=== PATIENT | male | born 1960 | race African-American/Black ===

== ENCOUNTER 2022-08-19 22:36 | Emergency (ER) | payer OTHER ==
[~2022-08-19] VITALS: Ht 172.7 cm; Wt 62.7 kg
[2022-08-20] MEDS ORDERED: PREDNISONE 20MG TABLET PO ONE (05:00)
[2022-08-20] MEDS ORDERED: P50 MT (05:08)
[2022-08-20] MEDS ORDERED: TACR30OI5 TP (05:08)
[2022-08-20] MEDS ORDERED: BETA15CR5 TP (05:08)
[2022-08-20] MEDS ORDERED: HYDR453.3 TP (05:08)
[2022-08-20] MEDS ORDERED: FLUO20DR3 EACH EAR (05:08)
[2022-08-20 05:25] VITALS: BP 124/78
== END 2022-08-20 05:27 | disposition home or self-care (01) ==
LOC: ER 22:43
DX: L30.9 Dermatitis, unspecified (principal); I10 Essential (primary) hypertension; Z79.899 Other long term (current) drug therapy
CPT/HCPCS: 99283; J7512

== ENCOUNTER 2022-12-14 14:53 | Emergency (ER) | payer OTHER ==
[~2022-12-14] VITALS: Ht 167.6 cm; Wt 81.0 kg
[~2022-12-14 14:53] MED LIST: BETA15CR5 TP; FLUO20DR3 EACH EAR; HYDR453.3 TP; P50 MT; TACR30OI5 TP
[2022-12-14 15:01] VITALS: BP 113/77
[2022-12-14] MEDS ORDERED: IBUPROFEN 600MG TABLET PO STA (16:58)
[2022-12-14] MEDS ORDERED: DICL100G31 TP (17:50)
[2022-12-14] MEDS ORDERED: NAPR-681 PO (17:50)
== END 2022-12-14 18:30 | disposition home or self-care (01) ==
LOC: ER 15:04
DX: S60.211A Contusion of right wrist, initial encounter (principal); M79.641 Pain in right hand; M19.031 Primary osteoarthritis, right wrist; I10 Essential (primary) hypertension; W01.0XXA Fall on same level from slipping, tripping and stumbling without subsequent striking against object, initial encounter; Y93.89 Activity, other specified; Y92.89 Other specified places as the place of occurrence of the external cause
CPT/HCPCS: 73110; 73130; 99284

== ENCOUNTER 2024-01-22 18:37 | Inpatient (IN) | payer MEDICARE, MEDICAID ==
[~2024-01-22] VITALS: Ht 172.7 cm; Wt 67.1 kg
[~2024-01-22 18:37] MED LIST changes: +DICL100G58 TP; +NAPR-681 PO
[2024-01-22 19:31] LABS: HEMATOCRIT. 37.5 % (42.0-52.0); HEMOGLOBIN. 12.2 g/dL (14.0-18.0); MEAN CORPUSCULAR HEMOGLOBIN 31.4 pg (28.0-32.0); MEAN CORPUSCULAR HGB CONC 32.6 g/dL (31.0-37.0); MEAN CORPUSCULAR VOLUME 96.4 fL (80.0-94.0); MEAN PLATELET VOLUME 7.4 fl (7.4-10.4); PLATELET 314 x1000/uL (130-400); RED BLOOD CELL COUNT 3.89 mill/uL (4.7-6.1); RED CELL DISTRIBUTION WIDTH 15.9 % (11.6-14.6); WHITE BLOOD COUNT 11.8 x1000/uL (4.5-11.0)
[2024-01-22 19:34] LABS: DIFFERENTIAL COMMENT 1
[2024-01-22 19:38] LABS: PROTHROMBIN TIME 10.8 sec (9.6-11.0)
[2024-01-22 19:47] LABS: ALANINE AMINOTRANSFERASE 11 IU/L (10-49); ALBUMIN 3.8 g/dL (3.2-4.8); ASPARTATE AMINOTRANSFERASE 24 IU/L (<34); BILIRUBIN TOTAL 0.7 mg/dL (0.1-1.0); CALCIUM 8.8 mg/dL (8.7-10.4); CARBON DIOXIDE 24 mEq/L (21-32); CHLORIDE 105 mEq/L (98-107); GLUCOSE 101 mg/dL (70-105); POTASSIUM 3.9 mEq/L (3.5-5.1); PROTEIN TOTAL 7.7 g/dL (6.0-8.3); SODIUM 137 mEq/L (136-145); TROPONIN I HIGH SENSITIVITY 4 ng/L (3.0-53); UREA NITROGEN BLOOD 15 mg/dL (9-23)
[2024-01-22] MEDS: SODIUM CHLORIDE 0.9% 1000ML BAG (SEPSIS BOLUS) IV ONE (19:58)
[2024-01-22] MEDS: DEXAMETHASONE 10 MG/ML VIAL IV ONE (19:58)
[2024-01-22] MEDS: VANCOMYCIN 1G PREMIX 200 ML IV ONE (19:58)
[2024-01-22 20:02] LABS: PLATELET ESTIMATE NORMAL
[2024-01-22 21:54] LABS: TROPONIN I HIGH SENSITIVITY 4 ng/L (3.0-53)
[2024-01-22 22:22] LABS: CLARITY URINE CLEAR (CLEAR); COLOR URINE DARK YELLOW (YELLOW); GLUCOSE URINE NEGATIVE (NEGATIVE); KETONES URINE TRACE (NEGATIVE); LEUKOCYTE ESTERASE URINE NEGATIVE (NEGATIVE); NITRITE URINE NEGATIVE (NEGATIVE); OCCULT BLOOD URINE NEGATIVE (NEGATIVE); PH URINE 5.5 (4.5-8.0); PROTEIN URINE TRACE (NEGATIVE); SPECIFIC GRAVITY URINE 1.048 (1.005-1.030)
[2024-01-22] MEDS: MEROPENEM 1G/100ML 100 ML IV SCH (22:28)
[2024-01-22] MEDS: IOHEXOL-300 100 ML BOTTLE ONE (22:32)
[2024-01-22 22:49] LABS: BACTERIA URINE 1+
[2024-01-22 22:50] LABS: RBC URINE 0-2 /hpf (0-2); SQUAMOUS EPITHELIAL CELL URINE 1+ /lpf (RARE/1+); WBC URINE 0-2 /hpf (0-2)
[2024-01-23 06:18] VITALS: BP 159/96; PULSE 104; RESP 18; TEMP 98.8
[2024-01-23] MEDS ORDERED: LEVO25TA7 MT (06:59)
[2024-01-23] MEDS ORDERED: CIPR2.5D20 EACHEYE (06:59)
[2024-01-23] MEDS ORDERED: ERYT1OIN6 EACHEYE (06:59)
[2024-01-23] MEDS ORDERED: HYDR25TA MT (06:59)
[2024-01-23] MEDS ORDERED: AMLO5TAB88 MT (06:59)
[2024-01-23] MEDS ORDERED: DIPH25TA23 PO (07:01)
[2024-01-23] MEDS ORDERED: DIPH-907 MT (07:01)
[2024-01-23] MEDS ORDERED: IBUP-2030 MT (07:05)
[2024-01-23 08:00] VITALS: BP 153/90; PULSE 95; RESP 20; TEMP 98
[2024-01-23] MEDS ORDERED: ONDANSETRON HCL 4MG/2ML INJ IV PRN (11:00)
[2024-01-23] MEDS ORDERED: ACETAMINOPHEN 325MG TABLET PO PRN ×2 (11:00)
[2024-01-23] MEDS ORDERED: IPRATROPIUM/ALBUTEROL 0.5-3(2.5)MG/3ML NEB HHN PRN (11:00)
[2024-01-23] MEDS ORDERED: LACTULOSE 20G/30ML UDC PO NR (11:19)
[2024-01-23 12:00] VITALS: BP 149/98; PULSE 113; RESP 20; TEMP 98.4
[2024-01-23 13:11] LABS: BG BASE EXCESS -0.7 mmol/L (-2.0-2.0); BG CARBOXYHEMOGLOBIN 0.3 % (0.5-1.5); BG DEOXYHEMOGLOBIN 4.5 % (0.0-5.0); BG FRACTION INSPIRED OXYGEN 21; BG HCO3 ACT 23.1 mmol/L (22.0-26.0); BG METHEMOGLOBIN 0.1 % (0.0-1.5); BG OXYGEN SATURATION 95.5 % (92.0-98.5); BG OXYHEMOGLOBIN 95.1 % (94.0-97.0); BG PCO2 34.9 mmHg (35.0-45.0); BG PH 7.438 (7.350-7.450); BG PO2 79.1 mmHg (75.0-100.0); BG SAMPLE SITE RIGHT BRACHIAL; BG TOTAL HEMOGLOBIN 11.5 g/dL (12.0-18.0); BG VENT MODE ROOM AIR
[2024-01-23] MEDS: DOCUSATE SODIUM 100MG CAPSULE PO PRN (14:57)
[2024-01-23] MEDS: DILTIAZEM HCL 30MG TABLET PO SCH (14:57)
[2024-01-23 15:30] LABS: BASOPHILS % 0.2 % (0.0-2.0); EOSINOPHILS % 1.8 % (0.0-5.0); HEMATOCRIT. 32.9 % (42.0-52.0); HEMOGLOBIN. 10.9 g/dL (14.0-18.0); LYMPHOCYTES % 14.7 % (20.0-50.0); MEAN CORPUSCULAR HEMOGLOBIN 31.5 pg (28.0-32.0); MEAN CORPUSCULAR HGB CONC 33.2 g/dL (31.0-37.0); MEAN PLATELET VOLUME 7.5 fl (7.4-10.4); MONOCYTES % 7.8 % (2.0-8.0); NEUTROPHILS % 75.5 % (40.0-76.0); PLATELET 281 x1000/uL (130-400); RED BLOOD CELL COUNT 3.46 mill/uL (4.7-6.1); RED CELL DISTRIBUTION WIDTH 15.3 % (11.6-14.6)
[2024-01-23 15:59] LABS: ALANINE AMINOTRANSFERASE 10 IU/L (10-49); ALBUMIN 3.5 g/dL (3.2-4.8); ASPARTATE AMINOTRANSFERASE 24 IU/L (<34); BILIRUBIN TOTAL 0.2 mg/dL (0.1-1.0); CALCIUM 8.6 mg/dL (8.7-10.4); CARBON DIOXIDE 25 mEq/L (21-32); CHLORIDE 108 mEq/L (98-107); CREATININE 0.8 mg/dL (0.6-1.3); GLUCOSE 125 mg/dL (70-105); POTASSIUM 3.8 mEq/L (3.5-5.1); SODIUM 140 mEq/L (136-145); T4 FREE 0.49 ng/dL (0.89-1.76); THYROID STIMULATING HORMONE 1.35 uIU/mL (0.55-4.78); UREA NITROGEN BLOOD 15 mg/dL (9-23)
[2024-01-23 16:00] VITALS: BP 141/87; PULSE 105; RESP 18; TEMP 98.1
[2024-01-23] MEDS: LEVOFLOXACIN 750MG PREMIX 150 ML IV SCH (18:00)
[2024-01-23 20:00] VITALS: BP 151/75; PULSE 85; RESP 20; TEMP 98
[2024-01-23] MEDS: HYDROCORTISONE 1% CREAM 30GM TOP SCH (21:25)
[2024-01-23] MEDS: METRONIDAZOLE 500 MG PREMIX 100 ML IV SCH (21:26)
[2024-01-24] VITALS: BP 131/56; PULSE 96; RESP 18; TEMP 98.2
[2024-01-24 04:00] VITALS: BP 140/78; PULSE 76; RESP 20; TEMP 98
[2024-01-24 06:37] LABS: HEMATOCRIT. 28.9 % (42.0-52.0); HEMOGLOBIN. 9.8 g/dL (14.0-18.0); MEAN CORPUSCULAR HEMOGLOBIN 31.9 pg (28.0-32.0); MEAN CORPUSCULAR HGB CONC 33.8 g/dL (31.0-37.0); MEAN CORPUSCULAR VOLUME 94.3 fL (80.0-94.0); MEAN PLATELET VOLUME 7.3 fl (7.4-10.4); PLATELET 243 x1000/uL (130-400); RED BLOOD CELL COUNT 3.07 mill/uL (4.7-6.1); RED CELL DISTRIBUTION WIDTH 15.1 % (11.6-14.6); WHITE BLOOD COUNT 7.8 x1000/uL (4.5-11.0)
[2024-01-24 06:45] LABS: DIFFERENTIAL COMMENT 1
[2024-01-24 06:58] LABS: CALCIUM 7.8 mg/dL (8.7-10.4); CARBON DIOXIDE 26 mEq/L (21-32); CHLORIDE 109 mEq/L (98-107); CREATININE 0.7 mg/dL (0.6-1.3); GLUCOSE 90 mg/dL (70-105); POTASSIUM 3.5 mEq/L (3.5-5.1); SODIUM 139 mEq/L (136-145); UREA NITROGEN BLOOD 13 mg/dL (9-23)
[2024-01-24 07:52] VITALS: BP 124/68; PULSE 78; RESP 18; TEMP 98.6
[2024-01-24] MEDS: INFLUENZA VACCINE 05/PF 0.5 ML SYRINGE IM ONE (08:39)
[2024-01-24] MEDS: PANTOPRAZOLE SODIUM 40 MG/VIAL IV SCH (10:18)
[2024-01-24 11:44] VITALS: BP 125/73; PULSE 77; RESP 19; TEMP 98.2
[2024-01-24] MEDS: DILTIAZEM HCL 60MG TABLET PO SCH (13:57)
[2024-01-24 15:21] LABS: ANISOCYTOSIS 1+; PLATELET ESTIMATE NORMAL
[2024-01-24 16:34] VITALS: BP 131/68; PULSE 78; RESP 20; TEMP 98.3
[2024-01-24] MEDS: SODIUM CHLORIDE 0.45% 1,000 ML IV SCH (18:45)
[2024-01-24] MEDS: PANTOT AC/MIN OIL/PET HY-PHL OINT (AQUAPHOR) TOP SCH (19:58)
[2024-01-24] MEDS: CLONIDINE 0.1MG TABLET PO PRN (19:58)
[2024-01-24 20:00] VITALS: BP 162/96; PULSE 66; RESP 20; TEMP 97.3
[2024-01-25] VITALS: BP 134/83; PULSE 93; RESP 18; TEMP 97.2
[2024-01-25 04:00] VITALS: BP 137/82; PULSE 76; RESP 18; TEMP 97.7
[2024-01-25 08:00] VITALS: BP 112/74; PULSE 86; RESP 20; TEMP 98.1
[2024-01-25 12:00] VITALS: BP 113/80; PULSE 88; RESP 20; TEMP 97.9
[2024-01-25 16:00] VITALS: BP 135/82; PULSE 73; RESP 18; TEMP 98.1
[2024-01-25] MEDS: LEVOFLOXACIN 250MG TABLET PO SCH (17:29)
[2024-01-25] MEDS: IOHEXOL-350 100 ML BOTTLE ONE (19:19)
[2024-01-25 20:00] VITALS: BP 147/91; PULSE 75; RESP 20; TEMP 97.7
[2024-01-25] MEDS: METRONIDAZOLE 500MG TABLET PO SCH (21:19)
[2024-01-26] VITALS: BP 142/86; PULSE 66; RESP 20; TEMP 97.5
[2024-01-26 04:00] VITALS: BP 158/95; PULSE 67; RESP 20; TEMP 97.5
[2024-01-26 08:00] VITALS: BP 136/91; PULSE 71; RESP 20; TEMP 97.4
[2024-01-26 12:00] VITALS: BP 148/84; PULSE 65; RESP 19; TEMP 97.6
[2024-01-26] MEDS ORDERED: LEVO-65 MT (12:11)
[2024-01-26] MEDS ORDERED: METR-167 MT (12:11)
[2024-01-26 12:39] VITALS: BP 148/84; PULSE 65; TEMP 97.6; O2SAT 97
[2024-01-26 13:12] VITALS: PULSE 65
== END 2024-01-26 14:40 | disposition home or self-care (01) | DRG 728 ==
LOC: ER 18:37 → EDBEDREQ 22:36 → EDBEDREQTM 22:39 → EDBEDREQSVC 22:39 → MICUSO 22:39 → 7WST 01-23 05:53
PROVIDERS: ADMIT Internal Medicine; ATTEND Internal Medicine
DX: N49.2 Inflammatory disorders of scrotum (principal); K56.41 Fecal impaction; D64.9 Anemia, unspecified; L30.9 Dermatitis, unspecified; I10 Essential (primary) hypertension; K44.9 Diaphragmatic hernia without obstruction or gangrene; I45.10 Unspecified right bundle-branch block; J44.9 Chronic obstructive pulmonary disease, unspecified; R00.0 Tachycardia, unspecified; M16.11 Unilateral primary osteoarthritis, right hip; Z88.0 Allergy status to penicillin
CPT/HCPCS: 36415; 36600; 71045; 74177; 76857; 76870; 78582; 80048; 80053; 81003; 82270; 82375; 82805; 83605; 83880; 84145; 84439; 84443; 84480; 84484; 85025; 85379; 87070; 90686; 93005; 93970; 93976; 99285; A9500; C9113; J1100; J1956; J2185; J3370; J3490; J7030; Q9967

== ENCOUNTER 2024-02-21 19:56 | Emergency (ER) | payer MEDICARE, MEDICAID ==
[~2024-02-21] VITALS: Ht 172.7 cm; Wt 73.0 kg
[~2024-02-21 19:56] MED LIST changes: +AMLO5TAB88 MT; +CIPR2.5D20 EACHEYE; +DIPH-907 MT; +DIPH25TA23 PO; +ERYT1OIN6 EACHEYE; +HYDR25TA MT; +IBUP-2030 MT; +LEVO-65 MT; +LEVO25TA7 MT; +METR-167 MT
[2024-02-21 20:01] VITALS: O2SAT 96
[2024-02-21 21:03] LABS: HEMATOCRIT. 36.1 % (42.0-52.0); HEMOGLOBIN. 11.7 g/dL (14.0-18.0); MEAN CORPUSCULAR HEMOGLOBIN 30.3 pg (28.0-32.0); MEAN CORPUSCULAR HGB CONC 32.4 g/dL (31.0-37.0); MEAN CORPUSCULAR VOLUME 93.5 fL (80.0-94.0); MEAN PLATELET VOLUME 6.8 fl (7.4-10.4); PLATELET 267 x1000/uL (130-400); RED BLOOD CELL COUNT 3.86 mill/uL (4.7-6.1); RED CELL DISTRIBUTION WIDTH 15.3 % (11.6-14.6); WHITE BLOOD COUNT 8.1 x1000/uL (4.5-11.0)
[2024-02-21 21:07] LABS: DIFFERENTIAL COMMENT 1
[2024-02-21 21:24] LABS: ALANINE AMINOTRANSFERASE 13 IU/L (10-49); ALBUMIN 3.7 g/dL (3.2-4.8); ASPARTATE AMINOTRANSFERASE 23 IU/L (<34); BILIRUBIN TOTAL 0.5 mg/dL (0.1-1.0); CALCIUM 8.8 mg/dL (8.7-10.4); CARBON DIOXIDE 26 mEq/L (21-32); CHLORIDE 107 mEq/L (98-107); CREATININE 0.8 mg/dL (0.6-1.3); GLUCOSE 131 mg/dL (70-105); POTASSIUM 3.9 mEq/L (3.5-5.1); PROTEIN TOTAL 7.5 g/dL (6.0-8.3); SODIUM 138 mEq/L (136-145); TROPONIN I HIGH SENSITIVITY < 4 ng/L (3.0-53); UREA NITROGEN BLOOD 15 mg/dL (9-23)
[2024-02-21 21:27] LABS: PLATELET ESTIMATE NORMAL
[2024-02-21] MEDS ORDERED: TC025C15 TP (21:37)
[2024-02-21 21:53] VITALS: BP 136/66; PULSE 80; RESP 16; TEMP 98.8
== END 2024-02-21 22:51 | disposition home or self-care (01) ==
LOC: ER 19:56
DX: R53.1 Weakness (principal); I10 Essential (primary) hypertension; Z91.012 Allergy to eggs; Z88.0 Allergy status to penicillin; Z91.010 Allergy to peanuts; Z91.018 Allergy to other foods; Z79.899 Other long term (current) drug therapy
CPT/HCPCS: 36415; 71045; 80053; 84484; 85025; 93005; 99285

== ENCOUNTER 2024-03-27 19:26 | Inpatient (IN) | payer MEDICARE, MEDICAID ==
[~2024-03-27] VITALS: Ht 172.7 cm; Wt 66.2 kg
[~2024-03-27 19:26] MED LIST changes: +TC025C15 TP
[2024-03-27 20:14] VITALS: O2SAT 100
[2024-03-28] MEDS: LIDOCAINE HCL/EPINEPHRINE 1%-EPI 1:100,000 20 ML VIAL INFIL ONE
[2024-03-28 00:30] LABS: BASOPHILS % 0.6 % (0.0-2.0); EOSINOPHILS % 3.7 % (0.0-5.0); HEMATOCRIT. 33.8 % (42.0-52.0); HEMOGLOBIN. 11.6 g/dL (14.0-18.0); LYMPHOCYTES % 15.7 % (20.0-50.0); MEAN CORPUSCULAR HEMOGLOBIN 31.6 pg (28.0-32.0); MEAN CORPUSCULAR HGB CONC 34.3 g/dL (31.0-37.0); MEAN CORPUSCULAR VOLUME 92.3 fL (80.0-94.0); MEAN PLATELET VOLUME 6.3 fl (7.4-10.4); MONOCYTES % 7.1 % (2.0-8.0); NEUTROPHILS % 72.9 % (40.0-76.0); PLATELET 418 x1000/uL (130-400); RED BLOOD CELL COUNT 3.66 mill/uL (4.7-6.1); RED CELL DISTRIBUTION WIDTH 13.9 % (11.6-14.6); WHITE BLOOD COUNT 8.1 x1000/uL (4.5-11.0)
[2024-03-28 00:36] LABS: CHLORIDE 101 mEq/L (98-107); POTASSIUM 3.6 mEq/L (3.5-5.1); SODIUM 135 mEq/L (136-145)
[2024-03-28 00:37] LABS: CALCIUM 9.7 mg/dL (8.7-10.4); CARBON DIOXIDE 26 mEq/L (21-32)
[2024-03-28 00:42] LABS: CREATININE 0.7 mg/dL (0.6-1.3); GLUCOSE 95 mg/dL (70-105); UREA NITROGEN BLOOD 15 mg/dL (9-23)
[2024-03-28] MEDS: BACITRACIN ZINC OINT UDPKT TOP ONE (02:04)
[2024-03-28 02:26] LABS: CLARITY URINE CLEAR (CLEAR); COLOR URINE DARK YELLOW (YELLOW); GLUCOSE URINE NEGATIVE (NEGATIVE); KETONES URINE 1+ (NEGATIVE); LEUKOCYTE ESTERASE URINE TRACE (NEGATIVE); NITRITE URINE NEGATIVE (NEGATIVE); OCCULT BLOOD URINE NEGATIVE (NEGATIVE); PH URINE 5.5 (4.5-8.0); PROTEIN URINE TRACE (NEGATIVE); SPECIFIC GRAVITY URINE 1.027 (1.005-1.030)
[2024-03-28 02:46] LABS: BACTERIA URINE 1+; RBC URINE 0-2 /hpf (0-2); SQUAMOUS EPITHELIAL CELL URINE FEW /lpf (RARE/1+)
[2024-03-28] MEDS ORDERED: LEVOFLOXACIN 750MG PREMIX 150 ML IV ONE (04:45)
[2024-03-28] MEDS ORDERED: IOHEXOL-300 100 ML BOTTLE ONE (06:41)
[2024-03-28] MEDS ORDERED: IPRATROPIUM/ALBUTEROL 0.5-3(2.5)MG/3ML NEB HHN PRN (08:15)
[2024-03-28] MEDS ORDERED: AZTREONAM 2 GM in DEXT 5% WATER 100 ML IV SCH (08:15)
[2024-03-28] MEDS ORDERED: ONDANSETRON HCL 4MG/2ML INJ IV PRN ×2 (08:15→16:00)
[2024-03-28] MEDS ORDERED: DEXTROSE 5% WATER 1,000 ML IV SCH (08:15)
[2024-03-28] MEDS ORDERED: ACETAMINOPHEN 325MG TABLET PO PRN (08:15)
[2024-03-28] MEDS ORDERED: MEROPENEM 1,000 MG in SODIUM CHLORIDE 0.9% 100 ML IV SCH (09:00)
[2024-03-28 10:00] VITALS: BP 129/64; PULSE 80; RESP 16; TEMP 98.2
[2024-03-28 11:58] LABS: D-DIMER 1.22 mg/L FEU (<0.50); PARTIAL THROMBOPLASTIN TIME 32.2 sec (23.4-31.0); PROTHROMBIN TIME 10.9 sec (9.6-11.0)
[2024-03-28 12:00] VITALS: BP 123/75; PULSE 60; RESP 20; TEMP 96.4
[2024-03-28] MEDS: AZTREONAM 1G in DEXTROSE 5% WATER 50ML IV SCH (12:55)
[2024-03-28] MEDS ORDERED: PANTOPRAZOLE SODIUM 40 MG/VIAL IV SCH (13:30)
[2024-03-28] MEDS ORDERED: BUPIVACAINE HCL/PF 0.5% (5MG/ML) 10ML ONE (13:51)
[2024-03-28] MEDS ORDERED: POLYMYXIN B SULFATE 500000 UNITS/VIAL ONE (13:52)
[2024-03-28] MEDS: VANCOMYCIN 1.25GM PMX (XELLIA) 250 ML IV NR (13:55)
[2024-03-28 14:22] LABS: *AMPHETAMINES SCREEN URINE NEGATIVE (NEGATIVE); *BARBITURATES SCREEN URINE NEGATIVE (NEGATIVE); *BENZODIAZEPINES SCREEN URINE NEGATIVE (NEGATIVE); *COCAINE SCREEN URINE NEGATIVE (NEGATIVE); METHADONE URINE SCREEN NEGATIVE (NEGATIVE); OPIATES URINE SCREEN NEGATIVE (NEGATIVE)
[2024-03-28 14:23] LABS: CANNABINOID URINE SCREEN NEGATIVE (NEGATIVE); ECSTASY MDMA SCREEN URINE NEGATIVE (NEGATIVE); PHENCYCLIDINE URINE SCREEN NEGATIVE (NEGATIVE)
[2024-03-28] MEDS ORDERED: MIDAZOLAM HCL 2 MG/2 ML VIAL ONE (14:59)
[2024-03-28] MEDS ORDERED: FENTANYL CITRATE/PF 50MCG/ML 2ML VIAL ONE (14:59)
[2024-03-28] MEDS ORDERED: ETOMIDATE 2MG/ML 10ML VIAL IV ONE (14:59)
[2024-03-28] MEDS ORDERED: PROPOFOL 200MG/20ML VIAL IV ONE (15:02)
[2024-03-28 15:21] LABS: CREATINE KINASE 154 IU/L (46-171)
[2024-03-28 15:35] LABS: TROPONIN I HIGH SENSITIVITY < 4 ng/L (3.0-53)
[2024-03-28] MEDS ORDERED: MEPERIDINE HCL/PF 25MG/ML CPJ IV PRN (16:00)
[2024-03-28] MEDS ORDERED: LABETALOL 5MG/ML 4ML INJ IV PRN (16:00)
[2024-03-28] MEDS: HYDROMORPHONE HCL/PF 2MG/ML CPJ IV PRN (16:08)
[2024-03-28] MEDS: CLINDAMYCIN 600MG PREMIX 50 ML IV SCH (17:29)
[2024-03-28] MEDS: DEXTROSE 5% WATER 1,000 ML IV SCH (17:31)
[2024-03-28 20:00] VITALS: BP 105/66; PULSE 69; RESP 18; TEMP 97.5
[2024-03-28] MEDS ORDERED: CEFEPIME 2GM IN DEXT 5% 100ML IV SCH (22:00)
[2024-03-28] MEDS: VANCOMYCIN 1GM/200ML PMX (BAXTER) IV SCH (22:53)
[2024-03-28] MEDS: MORPHINE SULFATE 2 MG/ML CPJ (NOT FOR IM USE) IV PRN (22:54)
[2024-03-28] MEDS: DEXT 5%/0.45% NACL KCL 20MEQ/L 1,000 ML IV SCH (23:04)
[2024-03-29] VITALS: BP 127/77; PULSE 79; RESP 19; TEMP 98
[2024-03-29 00:26] LABS: CREATINE KINASE 165 IU/L (46-171)
[2024-03-29 00:29] LABS: TROPONIN I HIGH SENSITIVITY < 4 ng/L (3.0-53)
[2024-03-29] MEDS: METRONIDAZOLE 500 MG PREMIX 100 ML IV SCH (01:44)
[2024-03-29 04:00] VITALS: BP 108/73; PULSE 76; RESP 18; TEMP 97.5
[2024-03-29] MEDS: CEFEPIME 2GM/100ML 100 ML IV SCH ×2 (04:30→20:04)
[2024-03-29 07:06] LABS: CARBON DIOXIDE 25 mEq/L (21-32); CHLORIDE 102 mEq/L (98-107); POTASSIUM 4.3 mEq/L (3.5-5.1); SODIUM 133 mEq/L (136-145)
[2024-03-29 07:07] LABS: CALCIUM 8.9 mg/dL (8.7-10.4)
[2024-03-29 07:10] LABS: BASOPHILS % 0.8 % (0.0-2.0); EOSINOPHILS % 8.2 % (0.0-5.0); HEMATOCRIT. 30.9 % (42.0-52.0); HEMOGLOBIN. 10.3 g/dL (14.0-18.0); LYMPHOCYTES % 13.9 % (20.0-50.0); MEAN CORPUSCULAR HEMOGLOBIN 30.4 pg (28.0-32.0); MEAN CORPUSCULAR HGB CONC 33.5 g/dL (31.0-37.0); MEAN CORPUSCULAR VOLUME 90.8 fL (80.0-94.0); MEAN PLATELET VOLUME 6.7 fl (7.4-10.4); MONOCYTES % 8.7 % (2.0-8.0); NEUTROPHILS % 68.4 % (40.0-76.0); PLATELET 336 x1000/uL (130-400); RED CELL DISTRIBUTION WIDTH 13.9 % (11.6-14.6); WHITE BLOOD COUNT 6.6 x1000/uL (4.5-11.0)
[2024-03-29 07:12] LABS: CREATININE 0.8 mg/dL (0.6-1.3); GLUCOSE 115 mg/dL (70-105); TRIGLYCERIDE 114 mg/dL (0-150)
[2024-03-29 07:13] LABS: LDL CHOLESTEROL 103 mg/dL (5-100); UREA NITROGEN BLOOD 14 mg/dL (9-23)
[2024-03-29 07:14] LABS: CHOLESTEROL 143 mg/dL (<200); HDL CHOLESTEROL 35 mg/dL (>55); T4 FREE 0.75 ng/dL (0.89-1.76)
[2024-03-29 07:15] LABS: THYROID STIMULATING HORMONE 3.51 uIU/mL (0.55-4.78)
[2024-03-29 08:00] VITALS: BP 88/54; PULSE 75; RESP 18; TEMP 99.1
[2024-03-29] MEDS: PANTOPRAZOLE SODIUM 40 MG/VIAL IV SCH (08:33)
[2024-03-29 12:00] VITALS: BP 108/62; PULSE 72; RESP 18; TEMP 97.6
[2024-03-29] MEDS: MORPHINE SULFATE 4 MG/ML INJ (FOR IV/IM USE) IV PRN (14:08)
[2024-03-29] MEDS ORDERED: NALOXONE HCL 0.4MG/ML VIAL IV PRN (14:45)
[2024-03-29] MEDS: DEXT 5%/0.45% NACL 1000ML 1,000 ML IV SCH (15:32)
[2024-03-29 16:00] VITALS: BP 124/69; PULSE 66; RESP 18; TEMP 97.4
[2024-03-29] MEDS: METRONIDAZOLE 500 MG PREMIX 100 ML IV ONE (16:15)
[2024-03-29] MEDS: HYDROCODONE/ACETAMINOPHEN 5/325MG TABLET PO PRN (17:19)
[2024-03-29 20:00] VITALS: BP 110/66; PULSE 65; RESP 18; TEMP 97.5
[2024-03-30] VITALS: BP 111/66; PULSE 66; RESP 18; TEMP 97.9
[2024-03-30 08:00] VITALS: BP 122/77; PULSE 70; RESP 18; TEMP 99.1
[2024-03-30 08:32] LABS: CARBON DIOXIDE 26 mEq/L (21-32); CHLORIDE 104 mEq/L (98-107); POTASSIUM 4.3 mEq/L (3.5-5.1); SODIUM 135 mEq/L (136-145)
[2024-03-30 08:38] LABS: CREATININE 0.7 mg/dL (0.6-1.3); GLUCOSE 89 mg/dL (70-105); UREA NITROGEN BLOOD 9 mg/dL (9-23)
[2024-03-30] MEDS: FAMOTIDINE 20MG/2ML VIAL IV SCH (09:04)
[2024-03-30 12:00] VITALS: BP 116/73; PULSE 64; RESP 18; TEMP 97.7
[2024-03-30 16:00] VITALS: BP 119/73; PULSE 78; RESP 17; TEMP 98.6
[2024-03-30 20:00] VITALS: BP 118/75; PULSE 67; RESP 19; TEMP 98.1
[2024-03-31] VITALS: BP 121/78; PULSE 74; RESP 19; TEMP 97.8
[2024-03-31 04:00] VITALS: BP 128/82; PULSE 78; RESP 19; TEMP 98.7
[2024-03-31 07:22] LABS: BASOPHILS % 0.3 % (0.0-2.0); EOSINOPHILS % 12.5 % (0.0-5.0); HEMATOCRIT. 29.3 % (42.0-52.0); HEMOGLOBIN. 9.8 g/dL (14.0-18.0); LYMPHOCYTES % 18.1 % (20.0-50.0); MEAN CORPUSCULAR HEMOGLOBIN 30.4 pg (28.0-32.0); MEAN CORPUSCULAR HGB CONC 33.4 g/dL (31.0-37.0); MEAN CORPUSCULAR VOLUME 91.1 fL (80.0-94.0); MEAN PLATELET VOLUME 6.7 fl (7.4-10.4); MONOCYTES % 11.2 % (2.0-8.0); NEUTROPHILS % 57.9 % (40.0-76.0); PLATELET 360 x1000/uL (130-400); RED BLOOD CELL COUNT 3.21 mill/uL (4.7-6.1); RED CELL DISTRIBUTION WIDTH 13.8 % (11.6-14.6); WHITE BLOOD COUNT 5.2 x1000/uL (4.5-11.0)
[2024-03-31 07:33] LABS: CARBON DIOXIDE 25 mEq/L (21-32); CHLORIDE 105 mEq/L (98-107); POTASSIUM 3.9 mEq/L (3.5-5.1); SODIUM 136 mEq/L (136-145)
[2024-03-31 07:39] LABS: CREATININE 0.6 mg/dL (0.6-1.3); GLUCOSE 93 mg/dL (70-105); UREA NITROGEN BLOOD 8 mg/dL (9-23)
[2024-03-31 08:00] VITALS: BP 132/79; PULSE 66; RESP 18; TEMP 97.6
[2024-03-31 12:24] VITALS: BP 121/90; PULSE 73; RESP 18; TEMP 97.3
[2024-03-31 16:00] VITALS: BP 130/81; PULSE 60; RESP 18; TEMP 97.6
[2024-03-31 20:00] VITALS: BP 146/86; PULSE 61; RESP 18; TEMP 97.7
[2024-04-01] MEDS: LACTULOSE 20G/30ML UDC PO NR (06:41)
[2024-04-01 07:05] LABS: BASOPHILS % 0.6 % (0.0-2.0); HEMOGLOBIN. 10.7 g/dL (14.0-18.0); LYMPHOCYTES % 21.2 % (20.0-50.0); MEAN CORPUSCULAR HEMOGLOBIN 30.2 pg (28.0-32.0); MEAN CORPUSCULAR HGB CONC 33.6 g/dL (31.0-37.0); MEAN CORPUSCULAR VOLUME 90.1 fL (80.0-94.0); MEAN PLATELET VOLUME 6.6 fl (7.4-10.4); MONOCYTES % 11.6 % (2.0-8.0); NEUTROPHILS % 52.6 % (40.0-76.0); PLATELET 364 x1000/uL (130-400); RED BLOOD CELL COUNT 3.55 mill/uL (4.7-6.1); RED CELL DISTRIBUTION WIDTH 13.6 % (11.6-14.6); WHITE BLOOD COUNT 4.5 x1000/uL (4.5-11.0)
[2024-04-01 07:11] LABS: CARBON DIOXIDE 25 mEq/L (21-32); CHLORIDE 106 mEq/L (98-107); SODIUM 136 mEq/L (136-145)
[2024-04-01 07:13] LABS: CALCIUM 8.9 mg/dL (8.7-10.4)
[2024-04-01 07:17] LABS: CREATININE 0.6 mg/dL (0.6-1.3); GLUCOSE 81 mg/dL (70-105)
[2024-04-01 07:18] LABS: UREA NITROGEN BLOOD 6 mg/dL (9-23)
[2024-04-01 08:00] VITALS: BP_SYST 127; BP_SYST 129; BP_DIAS 72; BP_DIAS 76; PULSE 63; PULSE 69; RESP 17; RESP 18; TEMP 96.9
[2024-04-01 16:00] VITALS: BP 165/95; PULSE 63; RESP 18; TEMP 97.5
[2024-04-01] MEDS: CLONIDINE 0.1MG TABLET PO PRN (16:57)
[2024-04-01 20:00] VITALS: BP 150/92; PULSE 63; RESP 20; TEMP 96.6
[2024-04-01] MEDS: ONDANSETRON HCL 4MG/2ML INJ IV PRN (20:40)
[2024-04-01] MEDS: LACTULOSE 20G/30ML UDC PO PRN (20:43)
[2024-04-02] VITALS: BP 136/75; PULSE 64; RESP 20; TEMP 97.5
[2024-04-02 04:00] VITALS: BP 128/77; PULSE 68; RESP 20; TEMP 97.5
[2024-04-02 08:00] VITALS: BP 139/86; PULSE 62; RESP 19; TEMP 97.4
[2024-04-02 12:00] VITALS: BP 126/73; PULSE 69; RESP 19; TEMP 97.2
[2024-04-02] MEDS ORDERED: DOXY150T5 MT (12:30)
[2024-04-02] MEDS ORDERED: AMOX1TAB15 MT (12:30)
[2024-04-02 16:00] VITALS: BP 130/72; PULSE 72; RESP 19; TEMP 97.2
[2024-04-02 17:27] VITALS: BP 126/73; PULSE 69; TEMP 97.3
== END 2024-04-02 19:23 | DRG 464 ==
LOC: ER 19:26 → 6EST 03-28 05:13
PROVIDERS: ADMIT Internal Medicine; ATTEND Internal Medicine
PROC: 0JBC0ZZ Excision of Pelvic Region Subcutaneous Tissue and Fascia, Open Approach (ICD-10-PCS; principal; 2024-03-28)
DX: M72.6 Necrotizing fasciitis (principal); E87.1 Hypo-osmolality and hyponatremia; D64.9 Anemia, unspecified; I10 Essential (primary) hypertension; N49.3 Fournier gangrene; F17.210 Nicotine dependence, cigarettes, uncomplicated; N43.3 Hydrocele, unspecified; Z88.0 Allergy status to penicillin; Z91.012 Allergy to eggs; Z91.013 Allergy to seafood; Z91.018 Allergy to other foods; B96.6 Bacteroides fragilis [B. fragilis] as the cause of diseases classified elsewhere
CPT/HCPCS: 36415; 71045; 74177; 80048; 80061; 80202; 80305; 81003; 82550; 83605; 84145; 84439; 84443; 84484; 85025; 85379; 86850; 86900; 87070; 87075; 87076; 88304; 93970; 97162; 97166; 97535; 99285; C9113; J0692; J1170; J2250; J2270; J2405; J2704; J3010; J3370; J3490; J7060; J7070; J7120; Q9967